=== PATIENT | female | born 1990 | race Asian ===

== ENCOUNTER 2017-07-25 00:01 | Inpatient (IN) | payer SELFPAY ==
[~2017-07-25] VITALS: Ht 160 cm; Wt 71.7 kg
[2017-07-25] MEDS ORDERED: BUPIVACAINE 0.125%/NS PREMIX 250 ML ONE (00:15)
[2017-07-25] MEDS ORDERED: BUPIVACAINE-MPF 0.5% 10 ML VIAL INJ ONE (00:26)
[2017-07-25] MEDS ORDERED: LACTATED RINGERS 1,000 ML IV SCH (00:43)
[2017-07-25] MEDS ORDERED: METHYLERGONOVINE 0.2 MG/ML AMP IM PRN ×3 (01:05→03:35)
[2017-07-25] MEDS ORDERED: OXYTOCIN 10 UNITS/ML VIAL IM SCH (01:05)
[2017-07-25] MEDS ORDERED: CARBOPROST 250 MCG/ML AMP IM PRN (01:05)
[2017-07-25] MEDS ORDERED: OXYTOCIN 20 UNITS in LACTATED RINGERS 1,000 ML IV SCH (01:05)
[2017-07-25 01:11] VITALS: BP 118/67
[2017-07-25 01:15] LABS: HEMATOCRIT 38.5 % (36-48); HEMOGLOBIN 12.5 g/dL (12.0-16.0); MEAN CORPUSCULAR HEMOGLOBIN 32 pg (27-31); MEAN CORPUSCULAR HGB CONC 32 g/dL (33-37); MEAN CORPUSCULAR VOLUME 97 fL (80-94); PLATELET COUNT (AUTO) 194 K/uL (140-450); RED BLOOD CELL COUNT(AUTO) 3.96 MIL/uL (4.20-5.40); WHITE BLOOD COUNT (AUTO) 16.2 K/uL (4.8-10.8)
[2017-07-25] MEDS ORDERED: INFLUENZA VIRUS VACCINE QUAD 0.5 ML SYR IMVAC SCH (01:15)
[2017-07-25 01:50] LABS: ANION GAP 15.9 (8-16); CARBON DIOXIDE 23.8 mmol/L (21-32); CREATININE 0.7 mg/dL (0.6-1.3); POTASSIUM 3.7 mmol/L (3.5-5.1)
[2017-07-25 01:51] LABS: APPEARANCE,URINE HAZY (CLEAR); BILIRUBIN,URINE NEGATIVE (NEGATIVE); BLOOD, URINE 1+ (NEGATIVE); COLOR,URINE YELLOW (YELLOW); LEUKOCYTE ESTERASE ,URINE NEGATIVE (NEGATIVE); NITRITE, URINE NEGATIVE (NEGATIVE); PH,URINE 7.5 (5.0-9.0); UGLUCOSE NEGATIVE (NEGATIVE)
[2017-07-25 01:56] LABS: ALBUMIN 2.7 g/dL (3.4-5.0); TOTAL BILIRUBIN 0.4 mg/dL (0.0-1.0)
[2017-07-25 01:58] LABS: EOSINOPHILS % (MANUAL) 1 % (0-4); LYMPHOCYTES % (MANUAL) 17 % (20-46); MONOCYTES % (MANUAL) 1 % (5-12)
[2017-07-25] MEDS ORDERED: OXYTOCIN 20 UNITS/LR PREMIX 1,000 ML IV ONE (02:01)
[2017-07-25] MEDS ORDERED: OXYTOCIN 10 UNITS/ML VIAL ONE (02:01)
[2017-07-25 02:10] LABS: RBC,URINE 3-10 (FEW) /HPF (0-5); WBC,URINE 0-5 (RARE) /HPF (0-5)
[2017-07-25 02:11] LABS: URINE AMORPHOUS URATE 1+ /HPF (None Seen)
[2017-07-25] MEDS ORDERED: BENZOCAINE/MENTHOL 20%-0.5% 60 GM CAN TP PRN (03:35)
[2017-07-25] MEDS ORDERED: OXYTOCIN 10 UNITS/ML VIAL IM PRN (03:35)
[2017-07-25] MEDS ORDERED: IBUPROFEN 800 MG TAB PO PRN (03:35)
[2017-07-25] MEDS ORDERED: HYDROcodone/APAP 5/325 MG 1 TAB TAB PO PRN (03:35)
[2017-07-25] MEDS ORDERED: MEASLES, MUMPS, AND RUBELLA 1 VIAL SQVAC PRN (03:35)
[2017-07-25] MEDS ORDERED: TEMAZEPAM 15 MG CAP PO PRN (03:35)
[2017-07-25] MEDS ORDERED: oxyCODONE/APAP 5/325 MG 1 TAB TAB PO PRN (03:35)
[2017-07-25] MEDS ORDERED: AMPICILLIN 2,000 MG VIAL ONE (04:54)
[2017-07-25] MEDS: AMPICILLIN 2,000 MG in NACL 0.9% 100 ML IV SCH ×3 (05:14→13:25)
[2017-07-25] MEDS ORDERED: DOCUSATE SOD/SENNA 50/8.6 MG 1 TAB PO SCH (21:00)
[2017-07-26 05:52] LABS: HEMATOCRIT 35.8 % (36-48); HEMOGLOBIN 12.1 g/dL (12.0-16.0)
--- NOTE | 2017-07-26 09:45 | NUR ---
PATIENT HAS BEEN SCREENED AND CATEGORIZED LOW NUTRITION RISK. PATIENT WILL BE SEEN WITHIN 7 DAYS OF ADMISSION. 08/01/[address]
== END 2017-07-27 15:25 | disposition home or self-care (01) | DRG 775 ==
LOC: MLD 00:01 → MFCC 06:30
PROVIDERS: ADMIT Obstetrics & Gynecology; ATTEND Obstetrics & Gynecology
PROC: 10E0XZZ Delivery of Products of Conception, External Approach (ICD-10-PCS; principal; 2017-07-25)
PROC: 0HQ9XZZ Repair Perineum Skin, External Approach (ICD-10-PCS; 2017-07-25)
PROC: 3E0234Z Introduction of Serum, Toxoid and Vaccine into Muscle, Percutaneous Approach (ICD-10-PCS; 2017-07-25)
PROC: 10907ZC Drainage of Amniotic Fluid, Therapeutic from Products of Conception, Via Natural or Artificial Opening (ICD-10-PCS; 2017-07-25)
PROC: 3E0S3BZ Introduction of Anesthetic Agent into Epidural Space, Percutaneous Approach (ICD-10-PCS; 2017-07-25)
PROC: 00HU33Z Insertion of Infusion Device into Spinal Canal, Percutaneous Approach (ICD-10-PCS; 2017-07-25)
DX: O70.0 First degree perineal laceration during delivery (principal); O89.4 Spinal and epidural anesthesia-induced headache during the puerperium; Z23 Encounter for immunization; Z3A.39 39 weeks gestation of pregnancy; Z37.0 Single live birth
CPT/HCPCS: 36415; 51702; 59409; 80053; 81001; 85018; 85025; 86592; 86886; 86900; 86901; 90658; 90715; C1758; J0290; J2590; J3490